=== PATIENT | male | born 1975 | race Caucasian/White ===

== ENCOUNTER 2019-03-16 22:35 | Emergency (ER) | payer BC, SELFPAY ==
[2019-03-16 22:37] VITALS: BP 166/83; PULSE 85; RESP 16; TEMP 36.4; O2SAT 97; BMI 40.6
[2019-03-16 22:56] LABS: Bedside Glucose 451 mg/dL (70-110)
[2019-03-16] MEDS: Insulin Lispro 100 UNIT/ML INSULN.PEN 14 UNIT SC (23:04)
--- NOTE | 2019-03-16 23:33 | ED.VIS.GEN ---
History of Present Illness Chief Complaint: Hyperglycemia Informant: Patient Onset: Today Associated Symptoms: No symptoms Narrative: Patient is a type II diabetic, he had several different snacks or meals today that were relatively high in sugar. He had some sandwiches this morning, later had a brownie, he had a meal with a sugary sauce tonight. He was then getting another brownie but his made him check his blood sugar first, it was 450. He is asymptomatic. He has not checked his blood sugar in several weeks. He denies any symptoms in a period of time. He has been compliant with his medication. He is not on any insulins. - Past Medical History (1) Type 2 diabetes mellitus Status: Chronic Past Medical History - Allergies and Home Meds Allergies/Adverse Reactions: Allergies Penicillins Allergy (Verified 03/16/19 22:36) Unknown Primary Care Physician: Shaheed Ying MD [Primary Care Provider] - Lives: Spouse/ Significant Other Smoking Status: Never smoker Review of Systems General: Denies: Chills, Fever, Sweats Eyes: Denies: Visual changes - bilaterally, Diplopia ENT: Denies: Rhinorrhea, Sore throat Cardiovascular: Denies: Chest pain, Palpitations Respiratory: Denies: Dyspnea, Cough, Dyspnea on exertion Gastrointestinal: Denies: Abdominal pain, Nausea, Vomiting, Diarrhea, Melena, Hematochezia Genitourinary: Reports: Frequency - Chronic, unchanged since I have been a diabetic. Denies: Dysuria, Hematuria Musculoskeletal: Denies: Back pain, Extremity Pain Skin: Denies: Rash, Wounds Neurological: Denies: Headache, Weakness, Numbness Physical Exam Vital Signs/Narrative: Vital Signs Temp Pulse Resp BP Pulse Ox 03/16/19 22:37 97.6 F L 85 16 166/83 H 97 Inital Vital Signs reviewed: Yes General: Well nourished, Well developed, No Acute Distress Head: Normocephalic, Atraumatic Eyes: Perrl, EOMI ENT: Moist mucous membranes, No rhinorrhea Neck: Supple, Nontender Cardiovascular: Regular rate, Regular rhythm, No murmurs. Negative for: Tachycardia Respiratory: No distress, CTA bilaterally, Chest nontender Abdomen: Soft, Nontender, Nondistended, Normal bowel sounds Extremities: Nontender, No edema Skin: Normal color, No rash, No Trauma Neurological: Alert, Oriented x3, Cranial nerves II-XII grossly intact, Normal Strength, Normal Sensation, Normal Gait Psychological: Normal affect, Normal Mood Diagnostic/Tx/Re-eval - Medical Decision Making Patient is asymptomatic. I suspect he is hyperglycemic because of his diet intake. He was treated with insulin, lispro 14 units subcu for a blood sugar that was around 450. On recheck his blood sugar was 316, but on the next recheck it was around 350. On the next check it was in the 240s. He is still a symptomatic. Patient wants to wait for another recheck which I am fine with, plan is for discharge and advised to continue checking his blood sugars periodically and try to decrease his carbohydrate intake in the meantime. He can follow-up with his doctor if he is concerned about medication adjustments being needed. ED Disposition - Plan for ED Patient: Disposition: Home or Assisted Living Diagnosis: Hyperglycemia due to type 2 diabetes mellitus Instructions: ED Hyperglycemia Diabetic Referrals: Shaheed Ying MD [Primary Care Provider] - 3-5 Days
[2019-03-17 00:26] LABS: Bedside Glucose 316 mg/dL (70-110)
[2019-03-17 01:51] LABS: Bedside Glucose 342 mg/dL (70-110)
[2019-03-17 02:44] VITALS: BP 148/84; PULSE 82; RESP 18; O2SAT 99
[2019-03-17 02:51] LABS: Bedside Glucose 262 mg/dL (70-110)
[2019-03-17 03:27] VITALS: BP 145/82; PULSE 84; RESP 18; O2SAT 98
[2019-03-17 03:31] LABS: Bedside Glucose 274 mg/dL (70-110)
== END 2019-03-17 03:27 | disposition home or self-care (01) ==
PROVIDERS: Emergency Provider Emergency Medicine; Family Provider Family Medicine; PCP Family Medicine
DX: E11.65 Type 2 diabetes mellitus with hyperglycemia (principal); Z88.0 Allergy status to penicillin
CPT/HCPCS: 82962; 99282

== ENCOUNTER 2020-10-26 16:53 | Emergency (ER) | payer BC, SELFPAY ==
[2020-06-03 08:39] VITALS: BMI 40.6
[2020-10-26 16:54] VITALS: BP 147/80; PULSE 111; RESP 16; TEMP 35.9; O2SAT 97; BMI 39.3
--- NOTE | 2020-10-26 17:26 | CT_ITS ---
STUDY: CT ABDOMEN AND PELVIS WITH CONTRAST REASON FOR EXAM: Male, 45 years old. Abdominal pain and cramping. Bloating diarrhea. History of colitis. RADIATION DOSAGE (If Supplied By Facility): CTDIvol = ( 16.94 ) mGy, DLP = ( 1300.74 ) mGycm TECHNIQUE: Transaxial images were obtained from the dome of the diaphragm to the symphysis pubis with oral contrast. 100 ml of ISOVUE-370 contrast was administered. Sagittal and coronal images were reconstructed. Individualized dose optimization techniques were used for this CT. COMPARISON: None. FINDINGS: The visualized lung bases are clear. The visualized portions of the heart and pericardium are within normal limits. There are no calcified gallstones present. The liver is within normal limits. There are no suspicious hepatic lesions. The spleen is normal in size. The pancreas is within normal limits. The adrenal glands are within normal limits. There are no renal or ureteral stones. There is no hydronephrosis. There are no focal renal lesions. Normal visualized stomach. There is no bowel obstruction. There is bowel wall thickening in the ascending colon and transverse colon which is consistent with colitis. There are adjacent mildly enlarged lymph nodes, measuring up to 1.4 cm. The appendix is visualized and appears normal. The aorta is normal in caliber. There is no abdominal or pelvic free air, free fluid or fluid collection. There are no destructive osseous lesions. CT/Abdomen/Pelvis WITH Contrast IMPRESSION: Colitis in the ascending and transverse colon with adjacent lymphadenopathy. Electronically Signed: Phu Calixto, at 19:30 EST Tel , Service support ,
--- NOTE | 2020-10-26 17:28 | ED.DCSUM_ITS ---
- ER Visit Summary Date of Service: 10/26/20 Chief Complaint: Abdominal pain History of Present Illness: The patient is a 45 M who presents with abdominal pain that is been waxing and waning over the past week. Patient states he has a history of colitis and this feels similar to prior flareups of that. Patient states the pain is over the right side of his abdomen. Patient describes it as cramping. Patient states it is worse whenever he applies pressure to the right side of his abdomen. Patient states he has been taking dicyclomine at home with no improvement. Patient admits to nausea and decreased appetite. Patient denies any vomiting. Patient admits to some loose diarrhea which is chronic for him. Patient states that he has noted some blood on the toilet paper when he wipes. Patient denies any blood mixed with in his stools. Patient denies any dysuria or hematuria. Physical Examination: Vital signs are stable. Patient is afebrile. Patient is in no acute distress. Oral mucosa is pink and moist. Neck is supple. Trachea is midline. There is no JVD. Heart was regular rate and rhythm. Lungs are clear and equal bilaterally. There is good respiratory effort. Abdomen is soft. Bowel sounds are normal. There is tenderness over the right upper quadrant and mild tenderness over the right lower quadrant. There is no rebound or guarding noted. Cranial nerves II through XII are intact. There are no focal motor or sensory deficits noted. Extremities are intact. There is no calf tenderness or edema. Test Results: CBC and comprehensive metabolic profile were obtained and were within normal limits. Urinalysis does not show any evidence of urinary tract infection. CT scan of the abdomen and pelvis was obtained. There is colitis of the ascending and transverse colon with adjacent lymphadenopathy. This was interpreted by the radiologist and reviewed by myself. Emergency Department Course and Treatment: Patient was given a dose of Cipro and Flagyl here. Patient was given prescriptions for the same. Patient was instructed to avoid alcohol while taking the Flagyl. Patient was instructed to follow-up with his primary care physician in 5 to 7 days. Patient understood and was agreeable with the plan. All questions were answered. Disposition: Discharge home Impression: Colitis This note was generated with [employer] dictation software. It may contain incorrect words, spelling, and punctuation that were not noted in review of the chart prior to signing ED Disposition - Plan for ED Patient: Disposition: Home or Assisted Living Diagnosis: Colitis Instructions: ED Gastroenteritis, Bacterial (Adult) Prescriptions: Ciprofloxacin [Cipro] 500 mg PO BID #20 tab Prescription Printed metroNIDAZOLE [Flagyl] 500 mg PO Q6H #40 tab Prescription Printed Referrals: Betsy Ortiz NP, [employer]CH[employer] [Primary Care Provider] -
[2020-10-26 17:45] LABS: Absolute Lymphocyte Count 1.17 X10^3/uL (0.83-4.51); Absolute Neutrophil Count 5.5 X10^3/uL (2.0-7.7); Basophil# 0.06 X10^3/uL; Basophil% 0.7 % (0-1); Eosinophil# 0.34 X10^3/uL; Eosinophils% 4.1 % (0-5); Hematocrit 49.1 % (40-54); Hemoglobin 16.2 g/dL (13.0-16.5); Lymphocyte # 1.17 X10^3/ul (4.0); Lymphocyte % 14.3 % (19-41); Mean Corpuscular Hgb 27.5 pg (27.0-32.0); Mean Corpuscular Volume 83.4 fL (80-94); Mean Platelet Vol. 9.6 fl (6.2-12.0); Monocyte# 1.06 X10^3/uL; Monocyte% 12.9 % (0-10); NRBC Flagged by Analyzer 0 % (0-5); Neutrophil # 5.54 X10^3/uL (2.7-7.7); Neutrophil % 67.5 % (47-70); Platelet Count 244 K/mm3 (150-450); RBC Distribution Width CV 12.6 % (11.6-14.6); RBC Distribution Width SD 38.2 fl (35.1-43.9); Red Blood Count 5.89 M/mm3 (4.6-6.2); White Blood Count 8.2 K/mm3 (4.4-11.0)
[2020-10-26 18:02] LABS: ALB/GLOB Ratio 1.2 RATIO (0.9-2.4); AST(SGOT) 17 U/L (15-37); Alanine Aminotransfer ALT/SGPT 40 U/L (16-61); Albumin, Serum 4.3 g/dL (3.2-5.0); Alkaline Phosphatase 98 U/L (45-117); Anion Gap 8 (5-15); BUN 17 mg/dL (7-18); BUN/Creat Ratio 16.8 RATIO (10-20); Calcium,Total 9.3 mg/dL (8.5-10.1); Chloride 101 mmol/L (98-107); Creatinine, Serum 1.01 mg/dL (0.70-1.30); EST Glomerular Filtration Rate 85 mL/min (>60); Est Glom Filt Rate - Afr Amer 103 mL/min (>60); Estimated Creatinine Clearance 99.41 ml/min; Globulin 3.7 g/dL (2.2-4.2); Glucose 124 mg/dL (74-106); Lipase 120 U/L (73-393); Potassium 3.7 mmol/L (3.5-5.1); Sodium Level 137 mmol/L (136-145)
[2020-10-26 18:24] LABS: Bacteria 0 SEEN /hpf (None Seen); Mucous, Urine 0 SEEN /hpf (<or=2+); Red Blood Cells-Urine 0 SEEN /hpf (0-5); White Blood Cells 0 SEEN /hpf (0-5)
[2020-10-26 18:26] LABS: Color, Urine Yellow (Yellow); Glucose, Dipstick 1000 mg/dl (Normal); Ketone-Dipstick 15 mg/dl (Negative); Leukocyte Esterase-Dipstick Negative /ul (Negative); Nitrite-Dipstick Negative (Negative); Occult Blood-Urine Negative /ul (Negative); Protein-Dipstick Negative (Negative); Specific Gravity, Urine 1.015 (1.002-1.030); Urine Bilirubin Dipstick Negative (Negative); Urine Clarity Clear (Clear); Urine Urobilinogen Normal (Normal)
[2020-10-26 18:39] LABS: Squamous Epithelial Cells - UA 0-5 SEEN /hpf (0-5)
[2020-10-26 18:42] VITALS: BP 128/71; PULSE 91; RESP 16; O2SAT 96
[2020-10-26] MEDS: 0.9% Normal Saline 1,000 ML 1000 ML IV (19:04)
[2020-10-26] MEDS: metroNIDAZOLE 500 MG Tablet PO (19:52)
[2020-10-26] MEDS: Ciprofloxacin 500 MG Tablet PO (19:53)
[2020-10-26 19:57] VITALS: BP 134/74; PULSE 91; RESP 15
== END 2020-10-26 19:58 | disposition home or self-care (01) ==
PROVIDERS: Emergency Provider Emergency Medicine; PCP Nurse Practitioner Family
DX: K52.9 Noninfective gastroenteritis and colitis, unspecified (principal); E66.9 Obesity, unspecified; E11.9 Type 2 diabetes mellitus without complications
CPT/HCPCS: 74177; 80053; 81001; 83690; 85025; 96360; 99284; Q9967; A4216

== ENCOUNTER → 2021-01-07 07:49 | Outpatient (CLI) | payer BC, SELFPAY ==
--- NOTE | 2021-01-07 07:59 | US_ITS ---
STUDY: THYROID ULTRASOUND REASON FOR EXAM: Male, 45 years old. ENLARGED THYROID TECHNIQUE: Ultrasound evaluation of the thyroid was performed with real-time and static dover-scale imaging. COMPARISON: None. FINDINGS: RIGHT LOBE: The right lobe of the thyroid gland is markedly enlarged and measures 9 cm x 4 cm x 4.1 cm. There is a heterogeneous echotexture. Multiple complex nodules are seen scattered throughout the right lobe. The largest measures 1.3 cm x 1 cm x 0.9 cm. LEFT LOBE: The left lobe of the thyroid gland is markedly enlarged and measures 8.2 cm x 3.9 cm x 3.4 cm. There is a heterogeneous echotexture. Multiple solid and complex nodules are seen. The largest measures 2.4 times by 2.6 cm x 1.9 cm. ISTHMUS: The isthmus is enlarged and measures 12 mm. There is a dominant hypoechoic solid nodule within the right side of the isthmus measuring 2 cm x 1.2 cm x 1.2 cm. The regional lymph nodes are normal. US/Thyroid IMPRESSION: Market enlargement of the thyroid gland with multiple bilateral complex nodules with dominant nodules in both lobes. Correlation with a nuclear medicine thyroid uptake and scan is recommended and possible biopsy. Electronically Signed: Edy Alvarez MD at 13:55 EDT , Service support ,
== END ==
LOC: US 07:49
PROVIDERS: PCP Nurse Practitioner Family; Referring Provider Internal Medicine Endocrinology, Diabetes & Metabolism; Visit Provider Internal Medicine Endocrinology, Diabetes & Metabolism
DX: E66.01 Morbid (severe) obesity due to excess calories (principal); E11.65 Type 2 diabetes mellitus with hyperglycemia; E55.9 Vitamin D deficiency, unspecified; E78.5 Hyperlipidemia, unspecified; I10 Essential (primary) hypertension
CPT/HCPCS: 76536

== ENCOUNTER → 2021-01-24 09:06 | Outpatient (CLI) | payer BC, SELFPAY ==
[2021-01-24 09:58] LABS: Absolute Lymphocyte Count 1.05 X10^3/uL (0.83-4.51); Absolute Neutrophil Count 3.4 X10^3/uL (2.0-7.7); Basophil# 0.03 X10^3/uL; Basophil% 0.6 % (0-1); Eosinophil# 0.19 X10^3/uL; Eosinophils% 3.7 % (0-5); Hematocrit 47.2 % (40-54); Hemoglobin 15.3 g/dL (13.0-16.5); Lymphocyte # 1.05 X10^3/ul (4.0); Lymphocyte % 20.5 % (19-41); Mean Corp Hgb Conc 32.4 g/dL (32-36); Mean Corpuscular Hgb 27.2 pg (27.0-32.0); Mean Platelet Vol. 9.5 fl (6.2-12.0); Monocyte% 7.8 % (0-10); NRBC Flagged by Analyzer 0 % (0-5); Neutrophil # 3.42 X10^3/uL (2.7-7.7); Platelet Count 225 K/mm3 (150-450); RBC Distribution Width CV 12.7 % (11.6-14.6); RBC Distribution Width SD 38.7 fl (35.1-43.9); Red Blood Count 5.62 M/mm3 (4.6-6.2); White Blood Count 5.1 K/mm3 (4.4-11.0)
[2021-01-24 10:18] LABS: Microalbumin,Random Urine 9.4 mg/L (NO RANGE EST.)
[2021-01-24 10:30] LABS: Hemoglobin A1c 6.9 % (3.8-5.6)
[2021-01-24 10:34] LABS: ALB/GLOB Ratio 1.2 RATIO (0.9-2.4); AST(SGOT) 19 U/L (15-37); Alanine Aminotransfer ALT/SGPT 45 U/L (16-61); Albumin, Serum 3.9 g/dL (3.2-5.0); Alkaline Phosphatase 63 U/L (45-117); Anion Gap 6 (5-15); BUN 19 mg/dL (7-18); BUN/Creat Ratio 21.1 RATIO (10-20); Calcium,Total 8.9 mg/dL (8.5-10.1); Chloride 102 mmol/L (98-107); Cholesterol 125 mg/dL (200); EST Glomerular Filtration Rate 97 mL/min (>60); Est Glom Filt Rate - Afr Amer 118 mL/min (>60); Globulin 3.3 g/dL (2.2-4.2); Glucose 146 mg/dL (74-106); High Density Lipoprotein 37 mg/dL; Potassium 3.9 mmol/L (3.5-5.1); Protein, Total 7.2 g/dL (6.4-8.2); Sodium Level 136 mmol/L (136-145); Thyroid Stim Hormone (TSH) 0.22 uIU/mL (0.358-3.74); Triglycerides 141 mg/dL; Very Low Density Lipoprotein 28 mg/dL (5-40)
[2021-01-26 10:03] LABS: Vitamin D,25 Hydroxy 32.5 ng/mL
== END ==
LOC: LAB 09:07
PROVIDERS: PCP Nurse Practitioner Family; Referring Provider Internal Medicine Endocrinology, Diabetes & Metabolism; Visit Provider Internal Medicine Endocrinology, Diabetes & Metabolism
DX: E11.65 Type 2 diabetes mellitus with hyperglycemia (principal); E55.9 Vitamin D deficiency, unspecified; E66.01 Morbid (severe) obesity due to excess calories; E78.5 Hyperlipidemia, unspecified; I10 Essential (primary) hypertension
CPT/HCPCS: 36415; 80053; 80061; 82043; 82306; 83036; 84443; 85025

== ENCOUNTER 2021-03-15 21:01 | Emergency (ER) | payer BC, SELFPAY ==
[2021-03-15 21:02] VITALS: BP 168/78; PULSE 108; RESP 18; TEMP 36.3; O2SAT 97; BMI 38.0
[2021-03-15 21:23] VITALS: BP 168/78; PULSE 108; RESP 18; TEMP 36.3; O2SAT 97
[2021-03-15 21:34] VITALS: BP 144/78; BP 156/90; BP 161/74; PULSE 110; PULSE 111; PULSE 96
--- NOTE | 2021-03-15 21:34 | CT_ITS ---
EXAM: CT ABDOMEN AND PELVIS WITH INTRAVENOUS CONTRAST : 1975 CLINICAL INDICATION: abdominal pain TECHNIQUE: Helically acquired images were obtained of the abdomen and pelvis with intravenous contrast. This CT exam was performed using one or more of the following dose reduction techniques: automated exposure control, adjustment of the mA and/or kV according to patient size, and/or use of iterative reconstruction technique. This report was created using [employer] report generation technology. CONTRAST: IV 100mL Isovue-370 COMPARISON: 10/26/2020 FINDINGS: LOWER THORAX: Unremarkable. Lung bases are clear. No cardiomegaly. No significant pericardial effusion. ABDOMEN: LIVER: Unremarkable. Homogeneous. No focal mass. GALLBLADDER AND BILE DUCTS: Unremarkable. No calcified gallstones. No gallbladder distention or wall edema. No intra- or extrahepatic biliary ductal dilation. PANCREAS: Unremarkable. No focal cystic or solid mass. SPLEEN: Unremarkable. Normal size without focal cystic or solid mass. ADRENALS: Unremarkable. No nodules. KIDNEYS AND URETERS: Unremarkable. Normal renal size and position. No hydronephrosis. STOMACH AND BOWEL: There is very questionable inflammation seen surrounding the distal ascending and proximal transverse colon. PELVIS: APPENDIX: No evidence of acute appendicitis. BLADDER: Unremarkable. REPRODUCTIVE: Unremarkable as visualized. No mass. ABDOMEN and PELVIS: INTRAPERITONEAL SPACE: Unremarkable. No ascites or other fluid collection. No free air. BONES/JOINTS: Unremarkable. No suspicious lytic or blastic abnormality. SOFT TISSUES: Unremarkable. No discrete abdominal or pelvic wall hernia. VASCULATURE: Unremarkable. Abdominal aorta is non-dilated. LYMPH NODES: There are several lymph nodes in the surrounding mesentery and the possibility of colitis cannot be excluded. CT/Abdomen/Pelvis W IV Cont ONLY IMPRESSION: Questionable inflammation in the mesentery surrounding the distal ascending and proximal transverse colon with adjacent adenopathy perhaps representing mild colitis. No other abnormalities are seen within the abdomen or pelvis. Individualized dose optimization techniques were used for this CT. at 2244 Reported and signed by: Jimbo Pugh MD Electronically Signed: Jimbo Pugh MD at 22:43 EDT Tel , Service support ,
--- NOTE | 2021-03-15 21:35 | EX.ED.DYSGE1 ---
HPI History of Present Illness Chief Complaint: General Illness Narrative Narrative: 45-year-old male presenting with diarrhea which has been ongoing for approximately 4 weeks. He states that at times there is blood in his diarrhea. He states he has a history of colitis but does not say he has Crohn's disease or ulcerative colitis. He tried to call to get an appointment with his GI doctor however she had retired. Her partner told him that she does not do colitis. Patient has history of pancreatitis also. He describes his abdominal pain is diffuse and crampy. He is not had a fever. He is able to eat and drink. He is making urine. [facility] Medical History (Updated 03/15/21 @ 21:29 by Cassy Potter RN) Benign essential hypertension with target blood pressure below 140/90 Colitis Diabetes type 2, uncontrolled Mixed hyperlipidemia Pancreatitis no medical history Home Medications amlodipine 5 mg PO MOWEFR 02/27/15 [History Last Taken Unknown] metformin 1,000 mg PO BID 02/27/15 [History Last Taken Unknown] glimepiride 4 mg tablet 4 mg PO BID #60 tab 11/29/19 [Rx Last Taken Unknown] atorvastatin 40 mg tablet 40 mg PO DAILY 06/03/20 [History Last Taken Unknown] ciprofloxacin HCl 500 mg PO BID #20 tab 10/26/20 [Rx Last Taken Unknown] ciprofloxacin HCl 500 mg PO BID #14 tablet 03/15/21 [Rx Last Taken Unknown] dicyclomine 10 mg PO DAILY 03/15/21 [History Last Taken Unknown] loperamide [Imodium] 2 mg PO Q6H PRN 03/15/21 [History Last Taken Unknown] metronidazole [Flagyl] 500 mg PO Q8H 7 Days #21 tab 03/15/21 [Rx Last Taken Unknown] ondansetron HCl [Zofran] 4 mg PO Q8H PRN #14 tab 03/15/21 [Rx Last Taken Unknown] pioglitazone [Actos] 30 mg PO DAILY 03/15/21 [History Last Taken Unknown] simethicone [Gas-X] 80 mg PO QHS 03/15/21 [History Last Taken Unknown] Allergy/AdvReac Type Severity Reaction Status Date / Time Penicillins Allergy Unknown Verified 03/15/21 21:04 liraglutide [From Victoza] AdvReac pancreatiti Verified 03/15/21 21:04 s Family History Other Diabetes Hypertension Social History Smoking Status: Never smoker ROS ROS ED Constitutional Constitutional ED: Reports other Details: Generalized weakness ; Denies chills, fever(s) or sweats Eyes Eyes: Denies blurry vision or change in vision ENT ENT ED: Denies ear pain, rhinorrhea or sore throat Cardiovascular Cardiovascular: Denies chest pain, palpitations or racing heartbeat Respiratory/Chest Respiratory/Chest: Denies cough, dyspnea or sputum Gastrointestinal Gastrointestinal: Reports abdominal pain, diarrhea and nausea; Denies constipation or vomiting Genitourinary Genitourinary ED: Denies dysuria, hematuria or urinary frequency Musculoskeletal Musculoskeletal: Denies arthralgias, myalgias or neck pain Integumentary Denies abscess, Abrasions or rash Neurologic Neurologic: Denies headache(s), paresthesias or weakness Psychiatric Psychiatric: Denies anxiety, depression, suicidal ideation or suicidal thoughts Endocrine Endocrinology: Denies polydipsia or polyuria EXAM Physical Exam Const Vital Signs: 03/15/21 21:02 03/15/21 21:23 03/15/21 21:30 Temperature 97.3 F L 97.3 F L Temperature Source Temporal Oral Pulse Rate 108 H 108 H Pulse Rate [Lying] Pulse Rate [Sitting] Pulse Rate [Standing] Respiratory Rate 18 18 Respiratory Pattern Normal Blood Pressure 168/78 H 168/78 H Blood Pressure [Lying] Blood Pressure [Sitting] Blood Pressure [Standing] Blood Pressure Mean 108 108 Blood Pressure Mean [Lying] Blood Pressure Mean [Sitting] Blood Pressure Mean [Standing] Pulse Ox 97 97 Oxygen Delivery Method Room Air Room Air 03/15/21 21:34 Temperature Temperature Source Pulse Rate Pulse Rate [Lying] 96 Pulse Rate [Sitting] 110 H Pulse Rate [Standing] 111 H Respiratory Rate Respiratory Pattern Blood Pressure Blood Pressure [Lying] 144/78 H Blood Pressure [Sitting] 156/90 H Blood Pressure [Standing] 161/74 H Blood Pressure Mean Blood Pressure Mean [Lying] 100 Blood Pressure Mean [Sitting] 112 Blood Pressure Mean [Standing] 103 Pulse Ox Oxygen Delivery Method Positive obese General Appearance ED: NAD Nutritional Appearance: obese HEENT Reports moist mucous membranes Negative for trauma Eyes PERRL and EOMs intact bilaterally Neck no lymphadenopathy and supple Cardio regular rate and regular rhythm GI normal to inspection, nondistended, normoactive bowel sounds Palpation: soft Extremity normal to inspection General Extremety ED: Negative for edema or tenderness General Extremity: Negative for edema Neuro oriented x3 Sensorium / Orientation: alert Psych mental status grossly normal Skin no rashes or lesions noted and no wounds MDM MDM MDM Narrative Medical decision making narrative: Patient presenting with diffuse crampy abdominal pain. He did have concern for possible pancreatitis although he has no sharp pain over the epigastrium. I obtained lab work which is all within normal limits. Urinalysis shows no sign of infection. CT of the abdomen pelvis identifies areas of colitis. Patient states that his previous GI doctor would put him on Cipro and Flagyl for this. I do not think this is unreasonable. Patient is given first dose in the ED and given a prescription for both medications and Zofran. He is given return precautions. Patient will follow up with a new GI doctor outpatient. Patient was unable to give a stool sample in the ED today. He states that he did sometimes he blood in his stool however his hemoglobin is 15.1. I do not see a need to test for this at this time. Impression: 1. Colitis Lab Data Labs: Laboratory Results - last 24 hr 03/15/21 03/15/21 03/15/21 21:10 21:30 21:30 WBC 8.3 RBC 5.47 Hgb 15.1 Hct 46.6 MCV 85.2 MCH 27.6 MCHC 32.4 RDW Std Deviation 40.6 RDW Coeff of Hector 13.2 Plt Count 267 MPV 9.2 Immature Gran % (Auto) 0.700 Neut % (Auto) 64.1 Lymph % (Auto) 16.6 L [place] % (Auto) 13.8 H Eos % (Auto) 4.0 Baso % (Auto) 0.8 Absolute Neuts (auto) 5.3 Absolute Lymphs (auto) 1.37 Nucleated RBC % 0 Sodium 136 Potassium 3.9 Chloride 98 Carbon Dioxide 29.0 Anion Gap 9 BUN 15 Creatinine 1.24 Estim Creat Clear Calc 80.97 Est GFR (MDRD) Af Amer 81 Est GFR (MDRD) Non-Af 67 BUN/Creatinine Ratio 12.1 Glucose 103 Calcium 9.1 Total Bilirubin 0.40 AST 23 ALT 41 Alkaline Phosphatase 66 Total Protein 7.9 Albumin 4.0 Globulin 3.9 Albumin/Globulin Ratio 1.0 Lipase 70 L Urine Color Yellow Urine Clarity Clear Urine pH 5.0 Ur Specific [place] 1.020 Urine Protein Negative Urine Glucose (UA) 1000 H Urine Ketones 15 H Urine Occult Blood Negative Urine Nitrite Negative Urine Bilirubin Negative Urine Urobilinogen Normal Ur Leukocyte Esterase Negative Urine RBC 0 SEEN Urine WBC 0-5 SEEN Ur Squamous Epith Cells 0-5 SEEN Urine Bacteria RARE Urine Mucus 0 SEEN Radiography Diagnostic Testing: Radiology Impression Abdomen/Pelvis CT 03/15/21 21:34 IMPRESSION: Questionable inflammation in the mesentery surrounding the distal ascending and proximal transverse colon with adjacent adenopathy perhaps representing mild colitis. No other abnormalities are seen within the abdomen or pelvis. Individualized dose optimization techniques were used for this CT. at 2244 Reported and signed by: Jimbo Pugh MD Electronically Signed: Jimbo Pugh MD at 22:43 EDT Tel , Service support , Discharge Plan Triage Chief Complaint: General Illness ED Provider: Tony Espinoza Dx/Rx/DC Orders Prescriptions: New ciprofloxacin HCl 500 mg tablet 500 mg PO BID Qty: 14 RF: 0 metronidazole [Flagyl] 500 mg tablet 500 mg PO Q8H 7 Days Qty: 21 RF: 0 ondansetron HCl [Zofran] 4 mg tablet 4 mg PO Q8H PRN (Reason: nausea and vomiting) Qty: 14 RF: 0 No Action amlodipine 5 MG tablet 5 mg PO MOWEFR RF: 0 metformin 1,000 MG tablet 1,000 mg PO BID RF: 0 atorvastatin 40 mg tablet 40 mg PO DAILY RF: 0 ciprofloxacin HCl 500 MG tablet 500 mg PO BID Qty: 20 RF: 0 pioglitazone [Actos] 30 mg tablet 30 mg PO DAILY RF: 0 loperamide [Imodium] 2 mg Capsule 2 mg PO Q6H PRN (Reason: Diarrhea) RF: 0 dicyclomine 10 mg Capsule 10 mg PO DAILY RF: 0 simethicone [Gas-X] 80 mg Tablet,Chewable 80 mg PO QHS RF: 0 glimepiride 4 mg tablet 4 mg PO BID Qty: 60 RF: 6 Primary Care Provider: Betsy Ortiz NP Referrals: Betsy Ortiz NP, [employer] [Primary Care Provider] - Activity Restrictions/Additional Instructions: Today you were diagnosed with colitis. Your lab work was all normal. As discussed we will start you on ciprofloxacin and Flagyl. You will also be given nausea medicine for home. If you are not feeling any better please return for repeat evaluation. Disposition Disposition: Home, self care
[2021-03-15] MEDS: 0.9% Normal Saline 1,000 ML 1000 ML IV (21:44)
[2021-03-15] MEDS: Ondansetron 4 MG/2 ML Vial IV (21:51)
[2021-03-15] MEDS: Morphine 4 MG/ML Syringe IV (21:51)
[2021-03-15 22:03] LABS: Absolute Lymphocyte Count 1.37 X10^3/uL (0.83-4.51); Absolute Neutrophil Count 5.3 X10^3/uL (2.0-7.7); Basophil# 0.07 X10^3/uL; Basophil% 0.8 % (0-1); Eosinophil# 0.33 X10^3/uL; Hematocrit 46.6 % (40-54); Hemoglobin 15.1 g/dL (13.0-16.5); Lymphocyte # 1.37 X10^3/ul (0.83-4.51); Lymphocyte % 16.6 % (19-41); Mean Corp Hgb Conc 32.4 g/dL (32-36); Mean Corpuscular Hgb 27.6 pg (27.0-32.0); Mean Corpuscular Volume 85.2 fL (80-94); Mean Platelet Vol. 9.2 fl (6.2-12.0); Monocyte# 1.14 X10^3/uL; Monocyte% 13.8 % (0-10); NRBC Flagged by Analyzer 0 % (0-5); Neutrophil # 5.29 X10^3/uL (2.7-7.7); Neutrophil % 64.1 % (47-70); Platelet Count 267 K/mm3 (150-450); RBC Distribution Width CV 13.2 % (11.6-14.6); RBC Distribution Width SD 40.6 fl (35.1-43.9); Red Blood Count 5.47 M/mm3 (4.6-6.2); White Blood Count 8.3 K/mm3 (4.4-11.0)
[2021-03-15 22:04] LABS: Mucous, Urine 0 SEEN /hpf (<or=2+); Red Blood Cells-Urine 0 SEEN /hpf (0-5)
[2021-03-15 22:14] LABS: Color, Urine Yellow (Yellow); Glucose, Dipstick 1000 mg/dl (Normal); Ketone-Dipstick 15 mg/dl (Negative); Leukocyte Esterase-Dipstick Negative /ul (Negative); Nitrite-Dipstick Negative (Negative); Occult Blood-Urine Negative /ul (Negative); Protein-Dipstick Negative (Negative); Urine Bilirubin Dipstick Negative (Negative); Urine Clarity Clear (Clear); Urine Urobilinogen Normal (Normal)
[2021-03-15 22:15] LABS: AST(SGOT) 23 U/L (15-37); Alanine Aminotransfer ALT/SGPT 41 U/L (16-61); Alkaline Phosphatase 66 U/L (45-117); Anion Gap 9 (5-15); BUN 15 mg/dL (7-18); BUN/Creat Ratio 12.1 RATIO (10-20); Calcium,Total 9.1 mg/dL (8.5-10.1); Chloride 98 mmol/L (98-107); Creatinine, Serum 1.24 mg/dL (0.70-1.30); EST Glomerular Filtration Rate 67 mL/min (>60); Est Glom Filt Rate - Afr Amer 81 mL/min (>60); Estimated Creatinine Clearance 80.97 ml/min; Globulin 3.9 g/dL (2.2-4.2); Glucose 103 mg/dL (74-106); Lipase 70 U/L (73-393); Potassium 3.9 mmol/L (3.5-5.1); Protein, Total 7.9 g/dL (6.4-8.2); Sodium Level 136 mmol/L (136-145)
[2021-03-15 22:16] LABS: Bacteria RARE /hpf (None Seen); Squamous Epithelial Cells - UA 0-5 SEEN /hpf (0-5); White Blood Cells 0-5 SEEN /hpf (0-5)
[2021-03-15] MEDS: metroNIDAZOLE 500 MG Tablet PO (23:29)
[2021-03-15] MEDS: Ciprofloxacin 500 MG Tablet PO (23:29)
[2021-03-15 23:33] VITALS: BP 124/64; PULSE 88; RESP 16; O2SAT 98
== END 2021-03-15 23:34 | disposition home or self-care (01) ==
PROVIDERS: Emergency Provider Student in an Organized Health Care Education/Training Program; PCP Nurse Practitioner Family
DX: K52.9 Noninfective gastroenteritis and colitis, unspecified (principal); Z87.19 Personal history of other diseases of the digestive system; I10 Essential (primary) hypertension; E78.2 Mixed hyperlipidemia; Z79.84 Long term (current) use of oral hypoglycemic drugs; Z79.899 Other long term (current) drug therapy; E11.9 Type 2 diabetes mellitus without complications
CPT/HCPCS: 74177; 80053; 81001; 83690; 85025; 96361; 96374; 96375; 99281; 99283; J7030; Q9967; A4216; J2405

== ENCOUNTER 2021-04-20 15:38 | Emergency (ER) | payer BC, SELFPAY ==
[2021-04-20 15:40] VITALS: BP 103/73; PULSE 132; RESP 18; TEMP 37.3; O2SAT 96; BMI 34.3
[2021-04-20 15:43] VITALS: BP 103/73; PULSE 132; RESP 18; TEMP 37.3; O2SAT 96
--- NOTE | 2021-04-20 16:05 | EX.ED.DYSGE1 ---
HPI History of Present Illness Chief Complaint: General Illness Informant: patient Narrative Narrative: Patient is a 45-year-old male with a history of colitis who presents to the emergency department for diarrhea. Patient was diagnosed with C. difficile last month. Approximately 1 week ago he finished a 10-day course of oral vancomycin. He states he was feeling mildly improved at the time of finishing antibiotics. The symptoms have returned. Today he had 6 episodes of intermittently bloody loose stool. He states that he feels like he is lactose intolerant because he had a similar episode after eating a smoothie previously. Patient has occasionally been nauseous but not vomiting. No fevers. He has some mild abdominal discomfort. No chest pain or shortness of breath. He has been feeling lightheaded over the past week. He is supposed to follow-up with his GI doctor this coming . He has a history of getting a colonoscopy. No diagnosis of UC or Crohn's. Patient states he does have some rectal pain. Is been very irritated. Does have hemorrhoids. He denies any urinary symptoms. [facility] Medical History (Updated 03/15/21 @ 21:29 by Cassy Potter RN) Benign essential hypertension with target blood pressure below 140/90 Colitis Diabetes type 2, uncontrolled Mixed hyperlipidemia Pancreatitis Home Medications amlodipine 5 mg PO MOWEFR 02/27/15 [History Last Taken Unknown] metformin 1,000 mg PO BID 02/27/15 [History Last Taken Unknown] glimepiride 4 mg tablet 4 mg PO BID #60 tab 11/29/19 [Rx Last Taken Unknown] atorvastatin 40 mg tablet 40 mg PO DAILY 06/03/20 [History Last Taken Unknown] ciprofloxacin HCl 500 mg PO BID #20 tab 10/26/20 [Rx Last Taken Unknown] ciprofloxacin HCl 500 mg PO BID #14 tablet 03/15/21 [Rx Last Taken Unknown] dicyclomine 10 mg PO DAILY 03/15/21 [History Last Taken Unknown] loperamide [Imodium] 2 mg PO Q6H PRN 03/15/21 [History Last Taken Unknown] metronidazole [Flagyl] 500 mg PO Q8H 7 Days #21 tab 03/15/21 [Rx Last Taken Unknown] ondansetron HCl [Zofran] 4 mg PO Q8H PRN #14 tab 03/15/21 [Rx Last Taken Unknown] pioglitazone [Actos] 30 mg PO DAILY 03/15/21 [History Last Taken Unknown] simethicone [Gas-X] 80 mg PO QHS 03/15/21 [History Last Taken Unknown] Allergy/AdvReac Type Severity Reaction Status Date / Time Penicillins Allergy Unknown Verified 04/20/21 15:43 liraglutide [From Victoza] AdvReac pancreatiti Verified 04/20/21 15:43 s Family History Other Diabetes Hypertension Social History Smoking Status: Never smoker ROS ROS ED Constitutional Constitutional ED: Denies chills or fever(s) Eyes Eyes: Denies change in vision ENT ENT ED: Denies epistaxis or rhinorrhea Cardiovascular Cardiovascular: Denies chest pain or palpitations Respiratory/Chest Respiratory/Chest: Denies cough, dyspnea or dyspnea on exertion Gastrointestinal Gastrointestinal: Reports diarrhea and nausea; Denies abdominal pain, melena or vomiting Genitourinary Genitourinary ED: Denies dysuria, hematuria or urinary frequency Musculoskeletal Musculoskeletal: Denies back pain or neck pain Integumentary Denies rash Neurologic Neurologic: Denies dizziness, headache(s) or weakness EXAM Physical Exam Const Vital Signs: 04/20/21 15:40 04/20/21 15:43 04/20/21 15:58 Temperature 99.1 F 99.1 F Temperature Source Temporal Temporal Pulse Rate 132 H 132 H Respiratory Rate 18 18 Respiratory Effort Normal Non-Labored Blood Pressure 103/73 103/73 Blood Pressure Mean 83 83 Pulse Ox 96 96 Oxygen Delivery Method Room Air Room Air Positive well nourished and well developed General Appearance ED: well developed and NAD HEENT Reports normocephalic and head/scalp atraumatic Eyes PERRL and EOMs intact bilaterally Neck supple Resp normal respiratory effort and clear to auscultation bilaterally Auscultation: Negative for rales, rhonchi or wheezes Cardio regular rhythm and no murmurs Rate: tachycardic GI normal to inspection, nondistended, normoactive bowel sounds and non-tender Palpation: soft; Negative for guarding or rebound tenderness present Extremity normal to inspection General Extremety ED: Negative for edema or tenderness General Extremity: Negative for edema Neuro no sensory deficits noted Sensorium / Orientation: alert Motor Exam: strength 5/5 throughout Psych mental status grossly normal Skin no rashes or lesions noted MDM MDM MDM Narrative Medical decision making narrative: Patient presents to the emergency department for diarrhea. This is been a semichronic thing for him over the past couple of months now. On arrival he is tachycardic. He is afebrile. He is in no acute distress. He has a benign abdominal exam. Will check basic lab work as he has been having bloody stools will check a hemoglobin as well as his electrolytes. He does appear dehydrated so we will start IV fluids. Will check another stool culture with his history of C. difficile. Patient's lab work did not show a high white blood cell count. His hemoglobin is 12.6 down from 15.1 on the previous lab draw little over a month prior. His sodium and chloride are mildly decreased. His glucose is 176. Otherwise no significant abnormality. Patient was able to give a stool sample. Results from this are pending. He will be contacted if results are positive. Patient is feeling much better on reexamination after IV fluids. I did attempt to get a hold of his GI specialist but apparently they do not take call from [facility]. Patient does feel countable being discharged at this time. He develops any worsening symptoms, significant abdominal pain, symptoms of anemia or systemic symptoms he needs to return back to the emergency department. He otherwise is to keep his appointment with the specialist. He understands and is agreeable with plan. All lab findings were discussed with him. All questions were answered. Clinical impression: #1 diarrhea #2 blood per rectum Discharge Plan Triage Chief Complaint: General Illness ED Provider: Kevin Alvares Dx/Rx/DC Orders Instructions: ED Diarrhea, Unknown Cause, ED Lower GI Bleeding (Stable) Prescriptions: No Action amlodipine 5 MG tablet 5 mg PO MOWEFR RF: 0 metformin 1,000 MG tablet 1,000 mg PO BID RF: 0 atorvastatin 40 mg tablet 40 mg PO DAILY RF: 0 ciprofloxacin HCl 500 MG tablet 500 mg PO BID Qty: 20 RF: 0 pioglitazone [Actos] 30 mg tablet 30 mg PO DAILY RF: 0 loperamide [Imodium] 2 mg Capsule 2 mg PO Q6H PRN (Reason: Diarrhea) RF: 0 dicyclomine 10 mg Capsule 10 mg PO DAILY RF: 0 simethicone [Gas-X] 80 mg Tablet,Chewable 80 mg PO QHS RF: 0 ciprofloxacin HCl 500 mg tablet 500 mg PO BID Qty: 14 RF: 0 metronidazole [Flagyl] 500 mg tablet 500 mg PO Q8H 7 Days Qty: 21 RF: 0 ondansetron HCl [Zofran] 4 mg tablet 4 mg PO Q8H PRN (Reason: nausea and vomiting) Qty: 14 RF: 0 glimepiride 4 mg tablet 4 mg PO BID Qty: 60 RF: 6 Primary Care Provider: Betsy Ortiz NP Referrals: Betsy Ortiz NP, [employer] [Primary Care Provider] - Activity Restrictions/Additional Instructions: Please keep scheduled appointment with your GI specialist this coming . Feel of any worsening symptoms, repeat lightheadedness please return back to the emergency department. Disposition Disposition: Home, Self Care Discharge Date/Time: 04/20/21 18:35
[2021-04-20] MEDS: 0.9% Normal Saline 1,000 ML 1000 ML IV (16:16)
[2021-04-20 16:31] LABS: Absolute Lymphocyte Count 0.86 X10^3/uL (0.83-4.51); Absolute Neutrophil Count 3.8 X10^3/uL (2.0-7.7); Basophil# 0.04 X10^3/uL; Basophil% 0.7 % (0-1); Eosinophil# 0.19 X10^3/uL; Eosinophils% 3.3 % (0-5); Hematocrit 39.7 % (40-54); Hemoglobin 12.6 g/dL (13.0-16.5); Lymphocyte # 0.86 X10^3/ul (0.83-4.51); Lymphocyte % 14.9 % (19-41); Mean Corp Hgb Conc 31.7 g/dL (32-36); Mean Corpuscular Hgb 27.1 pg (27.0-32.0); Mean Corpuscular Volume 85.4 fL (80-94); Mean Platelet Vol. 8.7 fl (6.2-12.0); Monocyte# 0.93 X10^3/uL; Monocyte% 16.1 % (0-10); NRBC Flagged by Analyzer 0 % (0-5); Neutrophil # 3.75 X10^3/uL (2.7-7.7); Neutrophil % 64.8 % (47-70); Platelet Count 357 K/mm3 (150-450); RBC Distribution Width CV 14.1 % (11.6-14.6); RBC Distribution Width SD 43.2 fl (35.1-43.9); Red Blood Count 4.65 M/mm3 (4.6-6.2); White Blood Count 5.8 K/mm3 (4.4-11.0)
[2021-04-20 16:46] LABS: ALB/GLOB Ratio 0.9 RATIO (0.9-2.4); AST(SGOT) 13 U/L (15-37); Alanine Aminotransfer ALT/SGPT 24 U/L (16-61); Albumin, Serum 3.3 g/dL (3.2-5.0); Alkaline Phosphatase 48 U/L (45-117); Anion Gap 7 (5-15); BUN 15 mg/dL (7-18); BUN/Creat Ratio 14.9 RATIO (10-20); Calcium,Total 8.9 mg/dL (8.5-10.1); Chloride 96 mmol/L (98-107); Creatinine, Serum 1.01 mg/dL (0.70-1.30); EST Glomerular Filtration Rate 85 mL/min (>60); Est Glom Filt Rate - Afr Amer 103 mL/min (>60); Estimated Creatinine Clearance 102.44 ml/min; Globulin 3.7 g/dL (2.2-4.2); Glucose 176 mg/dL (74-106); Sodium Level 134 mmol/L (136-145)
[2021-04-20 17:58] VITALS: BP 139/74; O2SAT 97
[2021-04-20 18:30] VITALS: BP 127/66; PULSE 79; RESP 14; O2SAT 98
== END 2021-04-20 18:35 | disposition home or self-care (01) ==
PROVIDERS: Emergency Provider Emergency Medicine; PCP Nurse Practitioner Family
DX: R19.7 Diarrhea, unspecified (principal); K62.5 Hemorrhage of anus and rectum; R11.0 Nausea; E11.65 Type 2 diabetes mellitus with hyperglycemia; E78.2 Mixed hyperlipidemia; I10 Essential (primary) hypertension; Z79.84 Long term (current) use of oral hypoglycemic drugs; Z79.899 Other long term (current) drug therapy; K64.9 Unspecified hemorrhoids
CPT/HCPCS: 80053; 83630; 85025; 87493; 87506; 96360; 99283; J7030; A4216

== ENCOUNTER 2021-04-23 18:01 | Emergency (ER) | payer BC, SELFPAY ==
[2021-04-23 18:02] VITALS: BP 155/99; PULSE 133; RESP 15; TEMP 35.4; O2SAT 97; BMI 34.0
--- NOTE | 2021-04-23 18:44 | EX.ED.DYSGE1 ---
HPI History of Present Illness Chief Complaint: Other, Pain/Inj Informant: patient Onset/Context/Timing Onset: Days (3) Context: Gradual Onset Quality: Sore Location: Rectum Worsened by: Bowel movement, passing gas Relieved by: Nothing Narrative Narrative: Patient presents with rectal pain that has been getting worse over the past 3 days. Patient states he has a chronically sore but sharp at times. Patient states this is worse whenever he passes gas or has a bowel movement. Patient states the pain is constant but worse at times. Patient was recently diagnosed with C. difficile and was started on oral vancomycin. Patient states he has noted some blood in his stools. Patient states his looked at his rectum and she thought there was a rectal fissure. Patient admits to some nausea but denies any vomiting. [facility] Medical History Benign essential hypertension with target blood pressure below 140/90 Colitis Diabetes type 2, uncontrolled Mixed hyperlipidemia Pancreatitis Home Medications amlodipine 5 mg PO MOWEFR 02/27/15 [History Last Taken Unknown] metformin 1,000 mg PO BID 02/27/15 [History Last Taken Unknown] glimepiride 4 mg tablet 4 mg PO BID #60 tab 11/29/19 [Rx Last Taken Unknown] atorvastatin 40 mg tablet 40 mg PO DAILY 06/03/20 [History Last Taken Unknown] ciprofloxacin HCl 500 mg PO BID #20 tab 10/26/20 [Rx Last Taken Unknown] ciprofloxacin HCl 500 mg PO BID #14 tablet 03/15/21 [Rx Last Taken Unknown] dicyclomine 10 mg PO DAILY 03/15/21 [History Last Taken Unknown] loperamide [Imodium] 2 mg PO Q6H PRN 03/15/21 [History Last Taken Unknown] metronidazole [Flagyl] 500 mg PO Q8H 7 Days #21 tab 03/15/21 [Rx Last Taken Unknown] ondansetron HCl [Zofran] 4 mg PO Q8H PRN #14 tab 03/15/21 [Rx Last Taken Unknown] pioglitazone [Actos] 30 mg PO DAILY 03/15/21 [History Last Taken Unknown] simethicone [Gas-X] 80 mg PO QHS 03/15/21 [History Last Taken Unknown] Allergy/AdvReac Type Severity Reaction Status Date / Time Penicillins Allergy Unknown Verified 04/20/21 15:43 liraglutide [From Victoza] AdvReac pancreatiti Verified 04/20/21 15:43 s Family History Other Diabetes Hypertension no surgical history Social History Smoking Status: Never smoker ROS ROS ED Constitutional Constitutional ED: Denies chills or fever(s) Eyes Eyes: Denies blurry vision or change in vision ENT ENT ED: Denies rhinorrhea or sore throat Cardiovascular Cardiovascular: Denies chest pain or palpitations Respiratory/Chest Respiratory/Chest: Denies cough or dyspnea Gastrointestinal Gastrointestinal: Reports diarrhea and nausea; Denies vomiting Genitourinary Genitourinary ED: Denies dysuria or hematuria Musculoskeletal Musculoskeletal: Reports back pain; Denies neck pain Integumentary Denies abscess or rash Neurologic Neurologic: Reports headache(s); Denies weakness Allergic/Immunologic Allergic/Immunologic ED: Denies mouth swelling or urticaria EXAM Physical Exam Const Vital Signs: 04/23/21 18:02 Temperature 95.8 F L Temperature Source Temporal Pulse Rate 133 H Respiratory Rate 15 Blood Pressure 155/99 H Blood Pressure Mean 117 Pulse Ox 97 Oxygen Delivery Method Room Air Positive well nourished and well developed General Appearance ED: well developed HEENT Reports moist mucous membranes Neck supple and no JVD Resp normal respiratory effort and clear to auscultation bilaterally Cardio regular rhythm and no murmurs Rate: tachycardic GI normal to inspection, nondistended, normoactive bowel sounds Palpation: soft and tender LUQ (Mild); Negative for guarding or rebound tenderness present Extremity normal to inspection General Extremety ED: Negative for edema or tenderness General Extremity: Negative for edema Neuro oriented x3, CN's II-XII intact bilaterally and no sensory deficits noted Sensorium / Orientation: alert Motor Exam: strength 5/5 throughout Psych mental status grossly normal Skin no rashes or lesions noted MDM MDM MDM Narrative Medical decision making narrative: Patient was given IV fluids. CBC and comprehensive metabolic profile were obtained and were essentially within normal limits. Patient was instructed to continue his oral vancomycin. Patient was instructed to use sitz bath to help with his anal fissure. Patient was instructed to follow-up with his primary care physician in 3 to 5 days. Patient understood and was agreeable with the plan. All questions were answered. Lab Data Attestation: I reviewed the patient's lab results. Labs: Laboratory Results - last 24 hr 04/23/21 04/23/21 18:55 18:55 WBC 6.4 RBC 4.63 Hgb 12.4 L Hct 40.3 MCV 87.0 MCH 26.8 L MCHC 30.8 L RDW Std Deviation 43.8 RDW Coeff of Hector 13.8 Plt Count 396 MPV 9.0 Immature Gran % (Auto) 0.900 Neut % (Auto) 57.0 Lymph % (Auto) 21.8 [place] % (Auto) 14.2 H Eos % (Auto) 5.2 H Baso % (Auto) 0.9 Absolute Neuts (auto) 3.6 Absolute Lymphs (auto) 1.39 Nucleated RBC % 0 Sodium 134 L Potassium 3.9 Chloride 97 L Carbon Dioxide 31.0 Anion Gap 6 BUN 11 Creatinine 1.05 Estim Creat Clear Calc 98.54 Est GFR (MDRD) Af Amer 98 Est GFR (MDRD) Non-Af 81 BUN/Creatinine Ratio 10.5 Glucose 214 H Calcium 8.7 Total Bilirubin 0.40 AST 16 ALT 25 Alkaline Phosphatase 51 Total Protein 7.2 Albumin 3.1 L Globulin 4.1 Albumin/Globulin Ratio 0.8 L Discharge Plan Triage Chief Complaint: Other, Pain/Inj ED Provider: Aj Vazquez Dx/Rx/DC Orders Clinical Impression: Acute anal fissure, Clostridium difficile colitis Instructions: ED Understanding Anal Fissures, Clostridium Difficile Infection Prescriptions: No Action amlodipine 5 MG tablet 5 mg PO MOWEFR RF: 0 metformin 1,000 MG tablet 1,000 mg PO BID RF: 0 atorvastatin 40 mg tablet 40 mg PO DAILY RF: 0 ciprofloxacin HCl 500 MG tablet 500 mg PO BID Qty: 20 RF: 0 pioglitazone [Actos] 30 mg tablet 30 mg PO DAILY RF: 0 loperamide [Imodium] 2 mg Capsule 2 mg PO Q6H PRN (Reason: Diarrhea) RF: 0 dicyclomine 10 mg Capsule 10 mg PO DAILY RF: 0 simethicone [Gas-X] 80 mg Tablet,Chewable 80 mg PO QHS RF: 0 ciprofloxacin HCl 500 mg tablet 500 mg PO BID Qty: 14 RF: 0 metronidazole [Flagyl] 500 mg tablet 500 mg PO Q8H 7 Days Qty: 21 RF: 0 ondansetron HCl [Zofran] 4 mg tablet 4 mg PO Q8H PRN (Reason: nausea and vomiting) Qty: 14 RF: 0 glimepiride 4 mg tablet 4 mg PO BID Qty: 60 RF: 6 Primary Care Provider: Betsy Ortiz NP Referrals: Betsy Ortiz NP, [employer]C [Primary Care Provider] - 3-5 Days Disposition Disposition: Home, Self Care
[2021-04-23] MEDS: 0.9% Normal Saline 1,000 ML 1000 ML IV (18:53)
[2021-04-23 19:11] LABS: Absolute Lymphocyte Count 1.39 X10^3/uL (0.83-4.51); Absolute Neutrophil Count 3.6 X10^3/uL (2.0-7.7); Basophil# 0.06 X10^3/uL; Basophil% 0.9 % (0-1); Eosinophil# 0.33 X10^3/uL; Eosinophils% 5.2 % (0-5); Hematocrit 40.3 % (40-54); Hemoglobin 12.4 g/dL (13.0-16.5); Lymphocyte # 1.39 X10^3/ul (0.83-4.51); Lymphocyte % 21.8 % (19-41); Mean Corp Hgb Conc 30.8 g/dL (32-36); Mean Corpuscular Hgb 26.8 pg (27.0-32.0); Monocyte# 0.91 X10^3/uL; Monocyte% 14.2 % (0-10); NRBC Flagged by Analyzer 0 % (0-5); Neutrophil # 3.64 X10^3/uL (2.7-7.7); Platelet Count 396 K/mm3 (150-450); RBC Distribution Width CV 13.8 % (11.6-14.6); RBC Distribution Width SD 43.8 fl (35.1-43.9); Red Blood Count 4.63 M/mm3 (4.6-6.2); White Blood Count 6.4 K/mm3 (4.4-11.0)
[2021-04-23 19:30] LABS: ALB/GLOB Ratio 0.8 RATIO (0.9-2.4); AST(SGOT) 16 U/L (15-37); Alanine Aminotransfer ALT/SGPT 25 U/L (16-61); Albumin, Serum 3.1 g/dL (3.2-5.0); Alkaline Phosphatase 51 U/L (45-117); Anion Gap 6 (5-15); BUN 11 mg/dL (7-18); BUN/Creat Ratio 10.5 RATIO (10-20); Calcium,Total 8.7 mg/dL (8.5-10.1); Chloride 97 mmol/L (98-107); Creatinine, Serum 1.05 mg/dL (0.70-1.30); EST Glomerular Filtration Rate 81 mL/min (>60); Est Glom Filt Rate - Afr Amer 98 mL/min (>60); Estimated Creatinine Clearance 98.54 ml/min; Globulin 4.1 g/dL (2.2-4.2); Glucose 214 mg/dL (74-106); Potassium 3.9 mmol/L (3.5-5.1); Protein, Total 7.2 g/dL (6.4-8.2); Sodium Level 134 mmol/L (136-145)
[2021-04-23 20:21] VITALS: RESP 16
== END 2021-04-23 20:22 | disposition home or self-care (01) ==
PROVIDERS: Emergency Provider Emergency Medicine; PCP Nurse Practitioner Family
DX: K60.0 Acute anal fissure (principal); A04.72 Enterocolitis due to Clostridium difficile, not specified as recurrent; E11.65 Type 2 diabetes mellitus with hyperglycemia; E78.2 Mixed hyperlipidemia; Z79.84 Long term (current) use of oral hypoglycemic drugs; Z79.899 Other long term (current) drug therapy
CPT/HCPCS: 80053; 85025; 96360; 99283; J7030; A4216

== ENCOUNTER → 2021-06-01 16:17 | Outpatient (CLI) | payer BC, SELFPAY ==
[2021-06-03 20:03] LABS: Anti-Thyroglobulin AB < 1.0 IU/mL (0.0-0.9); Thyroglobulin, Serum Qt. 83.1 ng/mL (1.4-29.2); Thyroid Peroxidase AB 12 IU/mL (0-34)
== END ==
PROVIDERS: PCP Nurse Practitioner Family; Referring Provider Otolaryngology; Visit Provider Otolaryngology
DX: E04.2 Nontoxic multinodular goiter (principal)
CPT/HCPCS: 36415; 84432; 86376; 86800

== ENCOUNTER → 2021-06-15 08:13 | Outpatient (CLI) | payer BC, SELFPAY ==
--- NOTE | 2021-05-17 | FLU_PTH ---
PATIENT: GINA KEEN LOC: [facility] U#:[id number] AGE/SX: 50/M ROOM: RE06/15/[address]: Dr. Aj Tipton MD : [id number] BED: DIS: SPEC #: [id number] RECD: 05/17/21 18:01 STATUS: CHRISTOPHER JORGE #: [id number] [place]: 05/17/21 00:[address]: Aj Tipton DEPT: CYTOLOGY RECD BY: Moira Carter ENTERED: 06/16/21 08:16 SP TYPE: Fluid OTHR DR: Betsy Ortiz, [employer]-[facility] Tissues: Thyroid gland, NOS Procedures: Special Stain Group II Surgery Specimen Level IV Cytospin Fluid HEADER OPERATION: Fine needle aspiration left thyroid PRE-OP DIAGNOSIS: Multinodular goiter TISSUE SUBMITTED: Left thyroid nodule DIAGNOSIS CYTOLOGY Fine needle aspiration, left thyroid nodule (cytospin and cell block): Adequate for evaluation. Consistent with benign follicular nodule. AM:marlyn 06/17/2021 CYTOLOGY STUDY Slides are reviewed. CYTOLOGY GROSS Received is 35 ml of light pink clear fluid labeled with the patient's name and and designated per the requisition as left thyroid. Submitted for cytology preparation including cell block. / marlyn 06/16/2021 TC:5 CPT: 88531, 15059
== END ==
LOC: LABSPEC 06-16 08:13
PROVIDERS: PCP Nurse Practitioner Family; Visit Provider Otolaryngology
DX: E04.2 Nontoxic multinodular goiter (principal)
CPT/HCPCS: 88108; 88305; 88313

== ENCOUNTER → 2021-07-01 07:58 | Outpatient (CLI) | payer BC, SELFPAY ==
--- NOTE | 2021-07-01 08:05 | NM_ITS ---
CLINICAL: 45-year-old male with reported history of thyroid nodularity and abnormal in vitro thyroid function studies. I-123 THYROID UPTAKE and SCAN COMPARISON: Thyroid ultrasound report 01/07/2021 FINDINGS: The patient was administered a 330 uCi I-123 capsule by mouth. The 4-hour I-123 radioactive iodine thyroidal uptake was calculated to be 16.1 % (normal 5 to 25 %). The 24-hour I-123 radioactive iodine thyroidal uptake was calculated to be 38.3 % (normal 5 to 40 %). The I-123 thyroid scan demonstrates heterogeneous radiopharmaceutical concentration throughout both lobes of a prominent sized U-shaped thyroid gland. Hypofunctioning regions appear primarily evident in the bilateral mid-inferior poles. NM/Thyroid Uptake Single or Mult IMPRESSION: 1. NORMAL 4- and upper limits of normal 24-hour I-123 radioactive iodine thyroidal uptakes. 2. The I-123 thyroid scan appears commensurate with the presence of a borderline, low-grade toxic multinodular goiter in view of the clinical presentation and in vitro thyroid function study results. 3. Malignant transformation of hypofunctioning regions involving a multinodular thyroid gland is < 5%, in the absence of previous head and neck therapeutic radiation. Electronically Signed: Judd Jordan DO at 22:31 EDT Tel , Service support ,
== END ==
PROVIDERS: PCP Nurse Practitioner Family; Referring Provider Otolaryngology; Visit Provider Otolaryngology
DX: E04.2 Nontoxic multinodular goiter (principal)
CPT/HCPCS: 78012; A9516